=== PATIENT | female | born 1940 | race American Indian/Alaskan Native ===

== ENCOUNTER 2020-10-27 16:57 | Emergency (ER) | payer MEDICARE, OTHER ==
[2020-10-27] MEDS: Sodium Chloride 0.9% 1,000 ML IV SCH (18:21)
[2020-10-27] MEDS: Sodium Chloride 0.9% 10 ML Syringe FLUSH PRN (18:21)
[2020-10-27] MEDS: Iopamidol 755 Mg/ML 100 ML Bottle IV ONE (19:59)
--- NOTE | 2020-10-27 20:49 | EDM.PDOC ---
ED HPI GENERAL MEDICAL PROBLEM - General Chief Complaint: General Stated Complaint: SOB, Dizziness Time Seen by Provider: 10/27/20 17:00 Source of Information: Reports: Patient History Limitations: Reports: No Limitations - History of Present Illness INITIAL COMMENTS - FREE TEXT/NARRATIVE: Patient presented to the ED because of dyspnea,fatigue which got worse today. She also c/o nausea and diarrhea but no vomiting. She was seen in the clinic today and was found to have sinu tach and was feeling dizzy that's why she was referred to the ED for further evaluation. She also has a history of PMR and all she does lately is sleep with achy joints and muscles. - Related Data Allergies Allergy/AdvReac Type Severity Reaction Status Date / Time celecoxib [From Celebrex] Allergy Fainting Verified 10/27/20 17:29 hydrochlorothiazide Allergy Confusion Verified 10/27/20 17:29 morphine Allergy Nausea Verified 10/27/20 17:29 psyllium Allergy Hives Verified 10/27/20 17:29 Home Meds: Home Meds DULoxetine [Cymbalta] 20 mg PO DAILY 10/27/20 [History] Levothyroxine [Synthroid] 0 mcg PO ACBREAKFAST 10/27/20 [History] Omeprazole Magnesium [Prilosec Otc] 10 mg PO DAILY 10/27/20 [History] Sulfamethoxazole/Trimethoprim [Bactrim Ds Tablet] 1 each PO BID #6 tablet 10/27/20 [Rx] amLODIPine [Norvasc] 5 mg PO DAILY 10/27/20 [History] dexAMETHasone [Dexamethasone] 4 mg PO DAILY #30 tab 10/27/20 [Rx] Past Medical History Cardiovascular History: Reports: Hypertension, [place], Other (See Below) Other Cardiovascular History: hx of aoric aneurysm - Past Surgical History Cardiovascular Surgical History: Reports: Aneurysm Social & Family History - Tobacco Use Tobacco Use Status *Q: Former Tobacco User Used Tobacco, but Quit: Yes Month/Year Tobacco Last Used: 1959 ED ROS GENERAL - Review of Systems Review Of Systems: See Below Constitutional: Reports: No Symptoms HEENT: Reports: No Symptoms Respiratory: Reports: No Symptoms Cardiovascular: Reports: Lightheadedness Endocrine: Reports: No Symptoms GI/Abdominal: Reports: Nausea : Reports: No Symptoms Musculoskeletal: Reports: No Symptoms Skin: Reports: No Symptoms Neurological: Reports: No Symptoms Psychiatric: Reports: No Symptoms ED EXAM, GENERAL - Physical Exam Exam: See Below Exam Limited By: No Limitations General Appearance: Alert, No Apparent Distress Ears: Normal External Exam, Normal Canal, Hearing Grossly Normal Nose: Normal Inspection, Normal Mucosa, No Blood Throat/Mouth: Normal Inspection, Normal Lips, Normal Teeth, Normal Gums Head: Atraumatic, Normocephalic Neck: Normal Inspection, Supple, Non-Tender, Full Range of Motion Respiratory/Chest: No Respiratory Distress, Lungs Clear, Normal Breath Sounds, No Accessory Muscle Use Cardiovascular: Normal Peripheral Pulses, Regular Rate, Rhythm, No Edema GI/Abdominal: Normal Bowel Sounds, Soft, Non-Tender, No Organomegaly Back Exam: Normal Inspection, Full Range of Motion Extremities: Normal Inspection, Normal Range of Motion, Non-Tender Neurological: Alert, Oriented, CN II-XII Intact, Normal Cognition Course - Vital Signs Text/Narrative:: Labs/EKG/Chest CT was discussed with patient NS 1 L bolus Dexamethasone 4 mg IV x1 Bactrim DS 1 PO x 1 Last Recorded V/S: Last Vital Signs Temp 36.7 C 10/27/20 16:57 Pulse 90 10/27/20 16:57 Resp 21 H 10/27/20 16:57 BP 120/68 10/27/20 16:57 Pulse Ox 94 L 10/27/20 16:57 - Orders/Labs/Meds Orders: Active Orders 24 hr Category Date Time Status EKG Documentation Completion [RC] ASDIRECTED Care 10/27/20 17:10 Active Ang Chest [CT] Stat Exams 10/27/20 19:18 Taken Sodium Chloride 0.9% [Normal Saline] 1,000 ml Med 10/27/20 18:15 Active IV ASDIRECTED Sodium Chloride 0.9% [Saline Flush] Med 10/27/20 17:10 Active 10 ml FLUSH ASDIRECTED PRN Saline Lock Insert [OM.PC] Routine Oth 10/27/20 17:10 Ordered EKG 12 Lead [EK] Routine Ther 10/27/20 17:10 Ordered Medication Orders Sodium Chloride (Normal Saline) 1,000 mls @ 500 mls/hr IV ASDIRECTED KRYSTYNA Last Admin: 10/27/20 18:21 Dose: 500 mls/hr Documented by: ISIAH Sodium Chloride (Saline Flush) 10 ml FLUSH ASDIRECTED PRN PRN Reason: Keep Vein Open Last Admin: 10/27/20 18:21 Dose: 10 ml Documented by: [id number] Labs: Laboratory Tests 10/27/20 10/27/20 10/27/20 Range/Units 17:35 17:35 17:35 WBC 11.4 H (3.0-10.3) x10-3/uL RBC 5.18 (3.60-5.20) x10(6)uL Hgb 15.4 (11.4-15.5) g/dL Hct 47.0 (34.2-48.2) % MCV 90.7 (76.7-100.5) fL MCH 29.7 (23.9-33.9) pg MCHC 32.7 (31.9-34.8) g/dL RDW 14.6 (12.3-16.5) % Plt Count 351 (151-488) x10(3)uL MPV 6.9 L (7.1-12.4) fL Neut % (Auto) 78.9 H (30.8-76.2) % Lymph % (Auto) 13.2 L (18.4-52.1) % [place] % (Auto) 5.6 (4.4-15.7) % Eos % (Auto) 1.7 (0.6-8.1) % Baso % (Auto) 0.6 (0.2-1.5) % Neut # (Auto) 9.0 H (1.5-6.3) x10-3/uL Lymph # (Auto) 1.5 (1.0-4.4) x10-3/uL [place] # (Auto) 0.6 (0.3-1.0) x10-3/uL Eos # (Auto) 0.2 (0.0-0.8) x10-3/uL Baso # (Auto) 0.1 (0.0-0.1) x10-3/uL PT 11.1 (9.0-11.1) sec INR 1.03 (1.00-1.24) APTT 25.0 (24.4-33.2) SECONDS D-Dimer, Quantitative 1.11 H (0.0-0.59) mg/LFEU Sodium 137 (135-145) mmol/L Potassium 4.0 (3.5-5.3) mmol/L Chloride 102 (100-110) mmol/L Carbon Dioxide 22 (21-32) mmol/L BUN 23 H (7-18) mg/dL Creatinine 1.5 H (0.55-1.02) mg/dL Est Cr Clr Drug Dosing TNP Estimated GFR (MDRD) 33 L (>60) BUN/Creatinine Ratio 15.3 (9-20) Glucose 146 H (80-116) mg/dL Calcium 9.0 (8.6-10.2) mg/dL Total Bilirubin 0.4 (0.1-1.3) mg/dL AST 14 (5-25) IU/L ALT 24 (12-36) U/L Alkaline Phosphatase 88 (56-112) IU/L Troponin I (4.0-60.3) pg/mL NT-Pro-B Natriuret Pep (<=450) pg/mL Total Protein 7.4 (6.0-8.0) g/dL Albumin 3.3 (3.2-4.6) g/dL Globulin 4.1 g/dL Albumin/Globulin Ratio 0.8 TSH, Ultra Sensitive (0.36-3.74) IU/mL Urine Color (YELLOW) Urine Appearance (CLEAR) Urine pH (5.0-6.5) Ur Specific [place] (1.010-1.025) Urine Protein (NEGATIVE) mg/dL Urine Glucose (UA) (NORMAL) mg/dL Urine Ketones (NEGATIVE) mg/dL Urine Occult Blood (NEGATIVE) Urine Nitrite (NEGATIVE) Urine Bilirubin (NEGATIVE) Urine Urobilinogen (NEGATIVE) mg/dL Ur Leukocyte Esterase (NEGATIVE) Urine RBC (0-5) Urine WBC (0-5) Ur Squamous Epith Cells (NS,R,O) Urine Bacteria (NS) 10/27/20 10/27/20 10/27/20 Range/Units 17:35 17:35 20:20 WBC (3.0-10.3) x10-3/uL RBC (3.60-5.20) x10(6)uL Hgb (11.4-15.5) g/dL Hct (34.2-48.2) % MCV (76.7-100.5) fL MCH (23.9-33.9) pg MCHC (31.9-34.8) g/dL RDW (12.3-16.5) % Plt Count (151-488) x10(3)uL MPV (7.1-12.4) fL Neut % (Auto) (30.8-76.2) % Lymph % (Auto) (18.4-52.1) % [place] % (Auto) (4.4-15.7) % Eos % (Auto) (0.6-8.1) % Baso % (Auto) (0.2-1.5) % Neut # (Auto) (1.5-6.3) x10-3/uL Lymph # (Auto) (1.0-4.4) x10-3/uL [place] # (Auto) (0.3-1.0) x10-3/uL Eos # (Auto) (0.0-0.8) x10-3/uL Baso # (Auto) (0.0-0.1) x10-3/uL PT (9.0-11.1) sec INR (1.00-1.24) APTT (24.4-33.2) SECONDS D-Dimer, Quantitative (0.0-0.59) mg/LFEU Sodium (135-145) mmol/L Potassium (3.5-5.3) mmol/L Chloride (100-110) mmol/L Carbon Dioxide (21-32) mmol/L BUN (7-18) mg/dL Creatinine (0.55-1.02) mg/dL Est Cr Clr Drug Dosing Estimated GFR (MDRD) (>60) BUN/Creatinine Ratio (9-20) Glucose (80-116) mg/dL Calcium (8.6-10.2) mg/dL Total Bilirubin (0.1-1.3) mg/dL AST (5-25) IU/L ALT (12-36) U/L Alkaline Phosphatase (56-112) IU/L Troponin I 4.1 (4.0-60.3) pg/mL NT-Pro-B Natriuret Pep 157 (<=450) pg/mL Total Protein (6.0-8.0) g/dL Albumin (3.2-4.6) g/dL Globulin g/dL Albumin/Globulin Ratio TSH, Ultra Sensitive 2.08 (0.36-3.74) IU/mL Urine Color Yellow (YELLOW) Urine Appearance Clear (CLEAR) Urine pH 5.0 (5.0-6.5) Ur Specific [place] 1.010 (1.010-1.025) Urine Protein Negative (NEGATIVE) mg/dL Urine Glucose (UA) Normal (NORMAL) mg/dL Urine Ketones 15 H (NEGATIVE) mg/dL Urine Occult Blood Negative (NEGATIVE) Urine Nitrite Negative (NEGATIVE) Urine Bilirubin Negative (NEGATIVE) Urine Urobilinogen 1 H (NEGATIVE) mg/dL Ur Leukocyte Esterase Small H (NEGATIVE) Urine RBC 0-5 (0-5) Urine WBC 0-5 (0-5) Ur Squamous Epith Cells Few H (NS,R,O) Urine Bacteria Few H (NS) Meds: Medications Generic Name Dose Route Start Last Admin Trade Name Farhan PRN Reason Stop Dose Admin Sodium Chloride 1,000 mls @ 500 mls/hr 10/27/20 18:15 10/27/20 18:21 Normal Saline IV 500 mls/hr ASDIRECTED KRYSTYNA Administration Sodium Chloride 10 ml 10/27/20 17:10 10/27/20 18:21 Saline Flush FLUSH 10 ml ASDIRECTED PRN Administration Keep Vein Open Discontinued Medications Generic Name Dose Route Start Last Admin Trade Name Fretammy PRN Reason Stop Dose Admin Dexamethasone 4 mg 10/27/20 20:47 10/27/20 20:53 Dexamethasone IVPUSH 10/27/20 20:48 4 mg ONETIME ONE Administration Iopamidol 85 ml 10/27/20 19:31 10/27/20 19:59 Isovue-370 (76%) IV 10/27/20 19:32 85 ml . DIRECTED ONE Administration Trimethoprim/Sulfamethoxazole 1 tab 10/27/20 20:48 10/27/20 20:53 Septra Ds PO 10/27/20 20:49 1 tab NOW STA Administration Departure - Departure Time of Disposition: 20:50 Disposition: Home, Self-Care 01 Condition: Good Clinical Impression: Dehydration, UTI (urinary tract infection) - Discharge Information Prescriptions: Sulfamethoxazole/Trimethoprim [Bactrim Ds Tablet] 1 each PO BID #6 tablet dexAMETHasone [Dexamethasone] 4 mg PO DAILY #30 tab Instructions: Urinary Tract Infection, Adult, [id number], Dehydration, Adult, [id number] Referrals: PCP,None [Primary Care Provider] - Forms: ED Department Discharge Additional Instructions: Please read discharge instructions on UTI and dehydration Increase oral fluids Take dexamethasone 4mg daily for 10 days Bactrim DS twice daily for 3 days Follow up as needed Sepsis Event Note (ED) - Evaluation Sepsis Screening Result: No Definite Risk - Focused Exam Vital Signs: Vital Signs Temp Pulse Resp BP Pulse Ox 10/27/20 16:57 36.7 C 90 21 H 120/68 94 L - My Orders Last 24 Hours: My Active Orders 10/27/20 17:10 EKG Documentation Completion [RC] ASDIRECTED Sodium Chloride 0.9% [Saline Flush] 10 ml FLUSH ASDIRECTED PRN Saline Lock Insert [OM.PC] Routine EKG 12 Lead [EK] Routine 10/27/20 18:15 Sodium Chloride 0.9% [Normal Saline] 1,000 ml IV ASDIRECTED 10/27/20 19:18 Ang Chest [CT] Stat - Assessment/Plan Last 24 Hours: My Active Orders 10/27/20 17:10 EKG Documentation Completion [RC] ASDIRECTED Sodium Chloride 0.9% [Saline Flush] 10 ml FLUSH ASDIRECTED PRN Saline Lock Insert [OM.PC] Routine EKG 12 Lead [EK] Routine 10/27/20 18:15 Sodium Chloride 0.9% [Normal Saline] 1,000 ml IV ASDIRECTED 10/27/20 19:18 Ang Chest [CT] Stat
[2020-10-27] MEDS: Dexamethasone 4 MG/ML 5 ML MDV IVPUSH ONE (20:53)
[2020-10-27] MEDS: Sulfamethoxazole/Trimethoprim 800-160 MG Tab PO STA (20:53)
--- NOTE | 2020-10-27 21:53 | CT ---
INDICATION: History of aortic aneurysm. Pain across her upper back. COMPUTERIZED TOMOGRAPHY ANGIOGRAPHY OF THE CHEST WITH CONTRAST: Spiral 1.25 mm axial sections were obtained through the chest with sagittal and coronal as well as axial reconstructions 10/27/20 and compared with 08/15/17. Total exam DLP was 989.39 mGy-cm. 85 mL Isovue-370 was utilized at 3.5 mL/second. No mediastinal masses were identified. Mediastinal lymphadenopathy is moderate and with 1 enlarged lymph node increased in size compared with the previous study, precarinal in location and measuring approximately 2 cm. The heart appears slightly enlarged. No pericardial effusion was seen. Moderate sized fixed hiatal hernia is noted, slightly increased in size compared with the previous study. Multiple probable simple cysts are noted at the right kidney and at least 1 at the left kidney. A definite active infiltrate or effusion was not identified. There is dilatation of the proximal ascending aorta which measures approximately 47 mm, unchanged from the previous examination. No dissection was suggested. No obstruction to flow was seen with some aortic arch calcifications present. Pulmonary flow appears to be fairly normal with what appear to be flow artifacts given the appearance of areas of striated decreased density, more prominently in the main pulmonary artery on the left than on the right with this appearance extending into the secondary vessels. This does make it difficult to entirely exclude pulmonary emboli in those areas. However, no cutoff of flow is identified to strongly suggest an obstructing pulmonary embolus. There are some minimal fibrotic-appearing changes in the lungs without a definite active infiltrate or effusion or nodular mass. IMPRESSION: 1. Proximal ascending aortic aneurysm is stable without evidence of a complicating process - no intimal dissection or obstruction was seen. 2. No definite pulmonary emboli, although the examination was not optimized for that purpose and there is difficulty in entirely excluding pulmonary emboli due to what appear to be artifacts. 3. Moderate sized fixed hiatal hernia. 4. ASHD. 5. Multicystic changes likely on the kidneys. 6. 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 Report was called to Dr. Mullins at 2033 hours. [facility]
== END 2020-10-27 21:06 | disposition home or self-care (01) ==
LOC: FB.ED 16:57 → EDBD 16:57 → FB.ED 21:06
DX: N39.0 Urinary tract infection, site not specified (principal); E86.0 Dehydration; I10 Essential (primary) hypertension; I25.2 Old myocardial infarction; Z88.5 Allergy status to narcotic agent; Z88.8 Allergy status to other drugs, medicaments and biological substances; Z88.6 Allergy status to analgesic agent; Z79.899 Other long term (current) drug therapy; Z87.891 Personal history of nicotine dependence
CPT/HCPCS: 36415; 71275; 80053; 81001; 83880; 84443; 84484; 85025; 85379; 85610; 85730; 87086; 93005; 96374; 99285-25; A9270-GY; J1100; J7030; Q9967